=== PATIENT | male | born 1965 | race Caucasian/White ===

== ENCOUNTER 2017-01-05 20:51 | Emergency (ER) | payer OTHER ==
[~2017-01-05] VITALS: Ht 177.8 cm; Wt 130.0 kg
[2017-01-05 20:53] VITALS: Ht 177.8 cm; Wt 130.0 kg
[2017-01-05] MEDS ORDERED: NITROGLYCERIN (SL) 0.4 MG TAB ONE (21:18)
[2017-01-05] MEDS ORDERED: NITROGLYCERIN (SL) 0.4 MG TAB SL ONE (21:30)
[2017-01-05 21:32] LABS: BASOPHIL # 0.1 10^3/ul (0.0-0.1); BASOPHILS % 0.5 % (0.0-2.0); EOSINOPHILS # 0.1 10^3/ul (0.0-0.5); EOSINOPHILS % 0.9 % (0.0-7.0); HEMATOCRIT 40.1 % (42.0-52.0); HEMOGLOBIN 13.7 g/dl (14.0-18.0); LYMPHOCYTES # 2.1 10^3/ul (0.8-2.9); LYMPHOCYTES % 20.6 % (15.0-51.0); MEAN CORPUSCULAR HEMOGLOBIN 29.7 pg (29.0-33.0); MEAN CORPUSCULAR HGB CONC 34.2 g/dl (32.0-37.0); MEAN CORPUSCULAR VOLUME 86.8 fl (82.0-101.0); MEAN PLATELET VOLUME 10.8 fl (7.4-10.4); MONOCYTE # 0.9 10^3/ul (0.3-0.9); MONOCYTES % 8.4 % (0.0-11.0); NEUTROPHILS % 69.2 % (39.0-77.0); PLATELET COUNT 272 10^3/UL (140-415); RED BLOOD COUNT 4.62 10^6/ul (4.70-6.10); RED CELL DISTRIBUTION WIDTH 12.7 % (11.5-14.5); WHITE BLOOD COUNT 10.2 10^3/ul (4.8-10.8)
[2017-01-05] MEDS ORDERED: METF1000 PO (22:00)
[2017-01-05] MEDS ORDERED: CLOP75TA27 PO (22:00)
[2017-01-05] MEDS ORDERED: ATOR40TA68 PO (22:02)
[2017-01-05 22:08] LABS: ANION GAP 13 (8-16); BLOOD UREA NITROGEN 9 mg/dl (7-20); CALCIUM 9.4 mg/dl (8.4-10.2); CARBON DIOXIDE 25 mmol/L (21-31); CHLORIDE 106 mmol/L (97-110); CREATININE 0.72 mg/dl (0.61-1.24); GLUCOSE 213 mg/dl (70-220); POTASSIUM 4.1 mmol/L (3.5-5.1); SODIUM 140 mmol/L (135-144)
[2017-01-05 22:22] LABS: TROPONIN-I < 0.012 ng/ml (0.00-0.12)
--- NOTE | 2017-01-05 22:52 | RADRPT ---
PROCEDURE: XR Chest. CLINICAL INDICATION: Chest pain TECHNIQUE: Single AP view of the chest. COMPARISON: No prior Chest x-ray FINDINGS: The cardiac silhouette is enlarged with loss of the left ventricular border secondary to consolidati on in the lingula and left lower lobe. Underlying mass cannot be excluded. The right lung is clear. Sternotomy wires in place No pneumothorax. The osseous structures and soft tissues are unremarkabl e. IMPRESSION: 1. Left hilar and lingular air space opacities / consolidation. CT correlation is recommended underl isaac mass cannot be excluded . RPTAT:AAJJ Physician Mary Date Time Electronically viewed and signed by Physician Mary on 01/05/2017 22:52 GISELE/
--- NOTE | 2017-01-05 23:19 | ERA ---
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 Prior to arrival, the patient states that he was having chest pressure. He states that this started this morning prior to his arrest. He had been having shortness of breath overnight with orthopnea. His chest pressure happens at rest and is worse with exertion. He also complains of associated shortness of breath. No diaphoresis , nausea, vomiting, dizziness, fever, chills, cough. He does not take diuretics daily only as needed. He does take Plavix daily but stopped taking it today as he is scheduled to have another CABG in 1 week. ROS All systems reviewed and are negative except as per history of present illness. Medications Home Meds Reported Medications Atorvastatin* (Atorvastatin*) Unknown Strength Tablet, 1 TAB PO QHS, #30 TAB 01/05/17 Metformin Hcl* (Metformin Hcl*) 1,000 Mg Tablet, 1000 MG PO WITH BREAKFAST DINNE , #60 TAB 01/05/17 Clopidogrel Bisulfate (Clopidogrel) 75 Mg Tablet, 75 MG PO DAILY, #30 TAB 01/05/17 Allergies Allergies: Coded Allergies: No Known Allergy (Unverified , 01/05/17) PMhx/Soc History of Surgery: Yes (OPEN HEART SX) Anesthesia Reaction: No Hx Neurological Disorder: No Hx Respiratory Disorders: No Hx Cardiac Disorders: Yes (CARDIAC) Hx Psychiatric Problems: No Hx Miscellaneous Medical Probl: No Hx Alcohol Use: Yes Hx Substance Use: No Hx Tobacco Use: Yes Smoking Status: Smoker,current status unk FmHx Family History: No diabetes Physical Exam Vitals Vital Signs Date Time Temp Pulse Resp B/P Pulse Ox O2 Delivery O2 Flow Rate FiO2 01/05/17 20:57 87 15 132/83 95 Room Air 01/05/17 20:53 98.1 87 15 122/72 95 Physical Exam Const: Nontoxic, well-appearing, no apparent distress, no diaphoresis, speaking in full sentences Head: Atraumatic Eyes: Normal Conjunctiva ENT: Normal External Ears, Nose and Mouth. Neck: Full range of motion..~ No meningismus. Resp: Clear to auscultation bilaterally Cardio: Regular rate and rhythm, no murmurs. 2+ distal pulses Abd: Soft, non tender, non distended. Normal bowel sounds Skin: No petechiae or rashes Back: No midline or flank tenderness Ext: No cyanosis, or edema Neur: Awake and alert Psych: Normal Mood and Affect Result Diagram: 01/05/17212401/05/172124 Results 24 hrs Laboratory Tests Test 01/05/17 21:25 White Blood Count 10.210^3/ul Red Blood Count 4.6210^6/ul Hemoglobin 13.7g/dl Hematocrit 40.1% Mean Corpuscular Volume 86.8fl Mean Corpuscular Hemoglobin 29.7pg Mean Corpuscular Hemoglobin Concent 34.2g/dl Red Cell Distribution Width 12.7% Platelet Count 28657^3/UL Mean Platelet Volume 10.8fl Neutrophils % 69.2% Lymphocytes % 20.6% Monocytes % 8.4% Eosinophils % 0.9% Basophils % 0.5% Nucleated Red Blood Cells % 0.0/100WBC Neutrophils # 7.010^3/ul Lymphocytes # 2.110^3/ul Monocytes # 0.910^3/ul Eosinophils # 0.110^3/ul Basophils # 0.110^3/ul Nucleated Red Blood Cells # 0.010^3/ul Sodium Level 140mmol/L Potassium Level 4.1mmol/L Chloride Level 106mmol/L Carbon Dioxide Level 25mmol/L Anion Gap 13 Blood Urea Nitrogen 9mg/dl Creatinine 0.72mg/dl Glucose Level 213mg/dl Calcium Level 9.4mg/dl Troponin I < 0.012ng/ml Current Medications Medications (Trade) Dose Ordered Sig/Cristian Route PRN Reason Start Time Stop Time Status Last Admin Dose Admin Nitroglycerin (Nitroglycerin (Sl Tab) 0.4 Mg) 25 tab STK-MED ONCE .ROUTE 01/05/17 21:18 01/05/17 21:19 DC Nitroglycerin (Nitroglycerin (Sl Tab) 0.4 Mg) 1 tab ONCE ONCE SL 01/05/17 21:30 01/05/17 21:31 DC 01/05/17 21:44 Ondansetron HCl (Zofran Inj) 4 mg ER BRIDGE PRN IV NAUSEA AND/OR VOMITING 01/05/17 23:30 10/6/17 23:29 Acetaminophen (Tylenol Tab) 650 mg ER BRIDGE PRN PO MILD PAIN/FEVER 01/05/17 23:30 01/06/17 23:29 Procedures/MDM EMERGENT LABS AND DIAGNOSTIC STUDIES: Lab Results above were reviewed and interpreted by me. CBC showed no significant abnormalities BMP shows no significant abnormalities other than elevated CO2, likely secondary to COPD Troponin is within normal limits 12-lead EKG was interpreted by Regine Hilario MD: Normal Sinus Rhythm Normal axis Normal intervals T waves V1 through V3 No acute ST or T wave changes suggestive of acute ischemia or STEMI. Radiology Results as interpreted by Radiology below were reviewed by Aria Hilario MD: Chest x-ray: IMPRESSION: 1. Left hilar and lingular air space opacities / consolidation. CT correlation is recommended underlying mass cannot be excluded . RPTAT:AAJJ Physician Mary Date Time Electronically viewed and signed by Physician Mary on 01/05/2017 22:52 Initial Nursing notes reviewed. Previous Medical Records requested via the Electronic Health Record. EMERGENCY DEPARTMENT COURSE / MEDICAL DECISION MAKING: Patient's symptoms are concerning for cardiac cause will require inpatient workup and continuous monitoring. He received aspirin prior to arrival. He had some mild chest pain while here so I gave him nitro with improvement. Initial EKG and troponin are within normal limits. However the patient is at high risk for acute coronary syndrome. I have a low suspicion for pulmonary embolism or dissection. A small consolidation was seen on the x-ray, however his symptoms are more consistent with heart failure rather than pneumonia. He is afebrile with stable vitals. Is no evidence of sepsis. I do not think antibiotics are necessary at this time. Further w/u for ischemia, arrhythmia, PE or dissection will be deferred to the inpatient team. Accepting Care Team: Current data and ongoing care discussed. Time: Time of admission Primary Provider: Raymond Outstanding Data: none The patient stated that he wanted to leave AGAINST MEDICAL ADVICE. However since he is in custody, I was told by the uniform patrol police officer that the patient may not sign out AMA. Departure Diagnosis: Primary Impression: Chest pain Qualified Code: R07.89 - Other chest pain Additional Impression: Dyspnea Qualified Code: R06.00 - Dyspnea, unspecified type Condition: Serious JULIANO HILARIO MD Jan 05, 2017 23:19
[2017-01-05] MEDS ORDERED: BISACODYL (EC) 5 MG TAB PO PRN (23:30)
[2017-01-05] MEDS ORDERED: NITROGLYCERIN (SL) 0.4 MG TAB SL PRN (23:30)
[2017-01-05] MEDS ORDERED: ACETAMINOPHEN 325 MG TAB PO PRN ×2 (23:30)
[2017-01-05] MEDS ORDERED: ONDANSETRON 4 MG INJ IV PRN ×2 (23:30)
[2017-01-05] MEDS ORDERED: morphine 2 MG INJ IV PRN (23:30)
[2017-01-05] MEDS ORDERED: HEPARIN 5,000 UNIT/0.5 ML VIAL SC SCH (23:30)
[2017-01-05] MEDS ORDERED: NACL 0.9% 3 ML SYG IV SCH (23:30)
[2017-01-05] MEDS ORDERED: FAMOTIDINE 20 MG TAB PO SCH (23:30)
[2017-01-05] MEDS ORDERED: DOCUSATE SODIUM 100 MG CAP PO PRN (23:30)
[2017-01-06 00:15] VITALS: BP 135/116; PULSE 87; RESP 19
[2017-01-06] MEDS ORDERED: CLOPIDOGREL 75 MG TAB PO SCH (09:00)
[2017-01-06] MEDS ORDERED: ASPIRIN 81 MG TAB PO SCH (09:00)
[2017-01-06] MEDS ORDERED: ATORVASTATIN PO SCH (21:00)
== END 2017-01-06 00:40 | disposition left against medical advice (07) ==
LOC: E/R 20:51
DX: R07.89 Other chest pain (principal); R06.00 Dyspnea, unspecified; Z87.891 Personal history of nicotine dependence; Z98.61 Coronary angioplasty status
CPT/HCPCS: 36415; 71010; 80048; 84484; 85025; 93005